=== PATIENT | female | born 1985 | race Caucasian/White ===

== ENCOUNTER 2017-10-16 10:10 | Emergency (ER) | payer OTHER ==
[~2017-10-16] VITALS: Ht 149.9 cm; Wt 54.4 kg
[2017-10-16] MEDS ORDERED: PEPCID40 MG PO (13:10)
[2017-10-16] MEDS ORDERED: INTESTINEX680 M1 PO (13:10)
== END 2017-10-16 13:51 | disposition home or self-care (01) ==
LOC: ER 10:10
DX: K52.9 Noninfective gastroenteritis and colitis, unspecified (principal)